=== PATIENT | female | born 1995 | race African-American/Black ===

== ENCOUNTER 2021-01-27 02:43 | Observation (INO) | payer OTHER ==
[~2021-01-27] VITALS: Ht 157.5 cm; Wt 52.3 kg
[~2021-01-27 02:43] MED LIST: NAPROSYN500 MG PO; NO HOME MEDS
[2021-01-27 03:12] LABS: HEMATOCRIT 42.2 % (37.0-47.0); HEMOGLOBIN 13.8 g/dl (12.0-16.0); IMMATURE GRANULOCYTES 0.4 % (0.0-5.0); MEAN CORPUSCULAR HGB 30.3 pG CALC (26.0-32.0); MEAN CORPUSCULAR HGB CONC 32.7 g/dL CAL (32.0-36.0); NEUT# 5.49 thou/uL (2.00-7.15); RED BLOOD COUNT 4.55 mill/uL (4.20-5.60); RED CELL DISTRI WIDTH 13.3 % (11.5-15.5)
[2021-01-27 03:13] LABS: MEAN CELL VOLUME 92.7 fL CALC (80.0-100.0)
[2021-01-27 03:14] LABS: URINE BILIRUBIN - DIPSTICK NEGATIVE (NEGATIVE); URINE BLOOD DIPSTICK NEGATIVE (NEGATIVE); URINE COLOR YELLOW; URINE GLUCOSE - DIPSTICK NEGATIVE (NEGATIVE); URINE KETONE NEGATIVE (NEGATIVE); URINE LEUK ESTERASE NEGATIVE (NEGATIVE); URINE PH 6.5 (4.5-8.0); URINE PROTEIN - DIPSTICK TRACE mg/dL (NEG-TRACE); URINE SPECIFIC GRAVITY 1.025; URINE UROBILINOGEN - DIPSTICK 0.2 E.U./dL (0.2)
[2021-01-27 03:15] LABS: URINE NITRITE - DIPSTICK NEGATIVE (Negative)
[2021-01-27 03:28] LABS: ALKALINE PHOSPHATASE 43 u/l (38-126); AMYLASE 67 u/l (30-110); ANION GAP 20 (6-22 (CALC)); BILIRUBIN, TOTAL 0.8 mg/dL (0.0-1.4); BUN 5 mg/dL (7-17); BUN/CREATININE RATIO 7 (12-20 (CALC)); CARBON DIOXIDE 22 mmol/l (22-30); CHLORIDE 105 mmol/l (95-108); CREATININE 0.7 mg/dL (0.5-1.0); GFR > 60 ML/MIN (>=60 (CALC)); GFR FOR AFR.AMER. > 60 ML/MIN (>=60 (CALC)); SGOT/AST 33 u/l (14-36); SODIUM 143 mmol/l (137-146)
[2021-01-27 03:30] LABS: ALBUMIN 5.2 g/dL (3.2-5.0); TOTAL PROTEIN 8.6 g/dL (6.3-8.2)
[2021-01-27 04:46] VITALS: BP 135/89
--- NOTE | 2021-01-27 04:47 | NUR ---
PATIENT BACK FROM CT IN STABLE CONDITION AT 0420 VIA WC. PATIENT REPORTS FEELING MUCH BETTER. NO N/V AT THIS TIME. PAIN 09/15. ZOSYN INFUSING. VSS.
[2021-01-27 04:53] VITALS: BP 132/85
--- NOTE | 2021-01-27 05:26 | NUR ---
PATIENT TO ULTRASOUND VIA W/C IN STABLE CONDITION.
[2021-01-27 05:54] VITALS: BP 135/84
[2021-01-27 06:23] VITALS: BP 140/98
--- NOTE | 2021-01-27 08:34 | NUR ---
REPORT CALLED TO FARHAN TRIANA RN
--- NOTE | 2021-01-27 08:35 | NUR ---
REPORT REC FROM Humaira NAJERA RN
--- NOTE | 2021-01-27 08:49 | NUR ---
PT ARRIVED VIA WC IN STABLE CONDITION ACCOMPANIED BY ED RN. PT A&O X4. NO DISTRESS NOTED. PT C/O OF PAIN /10 IN RLQ. PT CURRENTLY NPO. CLEAR BREATH SOUNDS UPON AUSCULTATION. ACTIVE BOWEL SOUNDS. IV HEALTHY AND PATENT. SMALL BURN TO KNEE. ASSESSMENT COMPLETED BY Shayla WINCHESTER RN. NO OTHER NEEDS AT THIS TIME. CALL LIGHT WITHIN REACH.
--- NOTE | 2021-01-27 08:51 | NUR ---
PATIENT TRANSPORTED TO [facility]
--- NOTE | 2021-01-27 12:46 | NUR ---
DR GALAN AT BEDSIDE DISCUSSING POC.
[2021-01-27 15:50] VITALS: BP 123/79
--- NOTE | 2021-01-27 16:00 | NUR ---
PT IN BED. NO DISTRESS NOTED. CALL LIGHT WITHIN REACH.
[2021-01-27 19:27] VITALS: BP 137/89
--- NOTE | 2021-01-27 19:30 | NUR ---
PATIENT RESTING IN BED AT THIS TIME-AWAKE ALERT AND ORIENTEDX3. PATIENT WITH IVF D51/2NS PATENT AND INFUSING VIA RAC SITE AT 75CC/HR. SITE REMAINS HEALTHY AT THIS TIME WITH GOOD BLOOD RETURN. NO COMPLAINTS AT THIS TIME. CALL LIGHT IN REACH. WILL CONT TO MONITOR.
--- NOTE | 2021-01-27 21:10 | NUR ---
PATIENT WAS UP AND HAD SHOWER. BACK IN BED-C/O ABD PAIN-MEDICATED WITH MORPHINE 2MG IVP FOR ABD PAIN. IVF PATENT AND INFUSING AT 75CC/HR. PATIENT FOR EGD IN AM AND CONSENT HAS BEEN SIGNED. INSTRUCTED NPO FOR EGD IN AM. PATIENT VERBALIZES UNDERSTANDING. CALL LIGHT IN REACH. WILL CONT TO MONITOR.
--- NOTE | 2021-01-28 01:58 | NUR ---
PATIENT RESTING IN BED AT THIS TIME WITH EYES CLOSED. RESPS ARE EVEN AND UNLABORED. IVF PATENT AND INFUSING AT 100CC/HR. CALL LIGHT IN REACH. WILL CONT TO MONITOR.
--- NOTE | 2021-01-28 02:52 | NUR ---
PATIENT AWAKE AND ON HER PHONE. C/O ABD PAIN-5.10 ON PAIN SCALE. MEDICATED WITH MORPHINE 2MG IVP ORDERED FOR PAIN. REMAINS NPO FOR EGD THIS MORNING. IVF D51/2NS PATENT AND INFUSING VIA RAC AT 75CC/HR. CALL LIGHT IN REACH. WILL CONT TO MONITOR.
[2021-01-28 04:27] VITALS: BP 106/59
--- NOTE | 2021-01-28 04:45 | NUR ---
PATIENT RESTING IN BED AT THIS TIME-POSITIONED ON LEFT SIDE WITH EYES CLOSED. RESPS ARE EVEN AND UNLABORED. REMAINS NPO FOR EGD. IVF PATENT AND INFUSING VIA RAC SITE AT 75CC/HR. CALL LIGHT IN REACH. WILL CONT TO MONITOR.
--- NOTE | 2021-01-28 07:05 | NUR ---
PT SLEEP UPON ENTERING ROOM. VITALS AND ASSESSMENT DONE. S1 AND S2 NOTED. LUNG SOUNDS CLEAR. BOWEL SOUNDS ACTIVE IN ALL 4 QUADRANTS. PEDAL PULSES STRONG BILATERALLY. IV LEAKING SO IT WAS REMOVED. PT GETTING READY FOR OR PROCEDURE. CONSENT OBTAINED. NO DISTRESS NOTED. CALL LIGHT WITHIN REACH.
[2021-01-28 07:08] VITALS: BP 132/84
--- NOTE | 2021-01-28 07:15 | NUR ---
PT TRANSPORTED TO THE OR BY OR NURSE IN STABLE CONDITION.
[2021-01-28] MEDS ORDERED: OMEPRAZOLE20 MG PO (08:04)
--- NOTE | 2021-01-28 08:35 | NUR ---
PT RETURNED FROM OR WITH BELEM Cortez RN. IN STABLE CONDITION. NO DISTRESS NOTED. CALL LIGHT WITHIN REACH.
[2021-01-28 09:00] VITALS: BP 148/96
[2021-01-28 09:15] VITALS: BP 136/99
[2021-01-28 09:30] VITALS: BP 137/94
[2021-01-28 11:00] VITALS: BP 129/100
--- NOTE | 2021-01-28 11:34 | NUR ---
BP RE-EVALUATED DUE TO ELEVATED DIASTOLIC BP READING. BP UPON REASSESSMENT 122/80. NO NEEDS AT THIS TIME. CALL LIGHT WITHIN REACH.
--- NOTE | 2021-01-28 12:00 | NUR ---
PT IN BED. NO DISTRESS NOTED. CALL LIGHT WITHIN REACH.
--- NOTE | 2021-01-28 13:25 | NUR ---
DR. GALAN AT BEDSIDE DISCUSSING POC
--- NOTE | 2021-01-28 14:20 | NUR ---
Discharge instructions given. Patient verbalizes understanding of same. Discharged in stable condition ambulating. D/C to Home with staff. All belongings sent with pt. Business card for given.
--- NOTE | 2021-01-28 14:20 | NUR ---
Discharge instructions given. Patient verbalizes understanding of same. Discharged in stable condition via Ambulatory to Home with staff. All belongings sent with pt.
== END 2021-01-28 14:20 | disposition home or self-care (01) | DRG 392 ==
LOC: ED 02:43 → ED-I 06:44 → ED 06:56 → MS2 06:56
PROVIDERS: Emergency Medicine; ADMIT Surgery; ATTEND Surgery
PROC: 0DB78ZX Excision of Stomach, Pylorus, Via Natural or Artificial Opening Endoscopic, Diagnostic (ICD-10-PCS; principal; 2021-01-28)
DX: K29.70 Gastritis, unspecified, without bleeding (principal); F17.200 Nicotine dependence, unspecified, uncomplicated; Z20.822 Contact with and (suspected) exposure to COVID-19
CPT/HCPCS: G0378; Q9967; S0164